=== PATIENT | female | born 1975 | race Caucasian/White ===

== ENCOUNTER 2019-06-15 17:45 | Emergency (ER) | payer MEDICAID ==
[~2019-06-15] VITALS: Ht 160 cm; Wt 76.2 kg
[2019-06-15 17:57] VITALS: Ht 160 cm; Wt 76.2 kg
[2019-06-15 21:54] LABS: CALCIUM 8.6 mg/dL (8.5-10.1); CARBON DIOXIDE 26.8 mmol/L (21-32); CHLORIDE SERUM 101 mmol/L (98-107); CREATININE SERUM 0.8 mg/dL (0.6-1.0); GFR1 > 60 mL/min; GLUCOSE SERUM 100 mg/dL (74-106); POTASSIUM SERUM 4.2 mmol/L (3.5-5.1); SODIUM SERUM 134 mmol/L (136-145)
[2019-06-15 21:55] LABS: BASOPHIL % 0.4 % (0-2); PLATELET COUNT 220 x10^3mcL (130-400); RED CELL DISTRIBUTION WIDTH 14.1 % (11.5-14.5)
[2019-06-15 22:06] LABS: ALBUMIN 3.5 g/dL (3.4-5.0); ALKALINE PHOSPHATASE 82 U/L (46-116); ALT/SGPT 64 U/L (14-59); AST/SGOT 55 U/L (15-37); BILIRUBIN TOTAL 0.28 mg/dL (0.20-1.00); LIPASE 71 IU/L (73-393); TOTAL PROTEIN, SERUM 7.1 g/dL (6.4-8.2)
[2019-06-16 00:51] VITALS: BP 108/60
== END 2019-06-16 00:51 | disposition home or self-care (01) ==
LOC: ED 17:45
PROVIDERS: Emergency Medicine
DX: R51 Headache (principal); R07.89 Other chest pain; M79.602 Pain in left arm; Z98.890 Other specified postprocedural states
CPT/HCPCS: 36415; J1885; J2270; Q0092; Q0162